=== PATIENT | male | born 1990 | race Caucasian/White ===

== ENCOUNTER 2023-01-17 00:21 | Emergency (ER) | payer MEDICAID ==
[~2023-01-17] VITALS: Ht 167.6 cm; Wt 75.0 kg
[2023-01-17 00:30] VITALS: BP 140/86
[2023-01-17] MEDS ORDERED: TETANUS, DIPHTHERIA, PERTUSSIS VAC/PF 0.5ML (>10YR OLD) IM ONE (00:45)
== END 2023-01-17 04:26 | disposition left against medical advice (07) ==
LOC: ER 00:21
DX: Z53.21 Procedure and treatment not carried out due to patient leaving prior to being seen by health care provider (principal)
CPT/HCPCS: 99281

== ENCOUNTER 2023-01-19 14:01 | Emergency (ER) | payer SELFPAY ==
[~2023-01-19] VITALS: Ht 167.6 cm; Wt 84.0 kg
[2023-01-19 14:27] VITALS: BP 149/87
[2023-01-19] MEDS ORDERED: BO1 TP ×2 (18:38)
[2023-01-19] MEDS ORDERED: IBUP-2028 MT ×2 (18:38)
== END 2023-01-19 18:55 | disposition home or self-care (01) ==
LOC: ER 14:01
DX: S01.412A Laceration without foreign body of left cheek and temporomandibular area, initial encounter (principal); S00.83XA Contusion of other part of head, initial encounter; F12.10 Cannabis abuse, uncomplicated; F15.10 Other stimulant abuse, uncomplicated; Z87.891 Personal history of nicotine dependence; Y04.0XXA Assault by unarmed brawl or fight, initial encounter; Y93.89 Activity, other specified; Y92.018 Other place in single-family (private) house as the place of occurrence of the external cause
CPT/HCPCS: 99282